=== PATIENT | male | born 1980 | race Caucasian/White ===

== ENCOUNTER → 2023-06-14 | Outpatient (CLI) | payer OTHER ==
[2023-06-14 16:59] LABS: Basophils # (A) 0.05 X 10*3/uL (0.00-0.10); Basophils % (A) 0.7 %; Eosinophils # (A) 0.16 X 10*3/uL (0.04-0.35); Eosinophils % (A) 2.2 %; HCT 42.5 % (39.6-50.0); HGB 14.3 d/dL (13.0-17.0); Lymphocytes # (A) 2.43 X 10*3/uL (0.90-5.00); Lymphocytes % (A) 33.6 %; MCH 32.1 pg (27.0-32.0); MCHC 33.6 d/dL (32.0-37.0); MCV 95.3 FL (80.0-97.0); Mean Platelet Volume 11.4 FL (9.5-12.2); Monocytes # (A) 0.75 X 10*3/uL (0.20-1.00); Monocytes % (A) 10.4 %; NRBC Per 100 WBC 0 X 10*3/uL (0.00-0.01); Neutrophils # (A) 3.82 X 10*3/uL (1.80-7.70); Neutrophils % (A) 52.8 %; Platelet Count 248 X 10*3/uL (140-440); RBC 4.46 X 10*6/uL (4.40-5.60); RDW 12.8 % (11.5-14.5); WBC 7.23 X 10*3/uL (4.50-10.00)
[2023-06-14 17:12] LABS: Blood Urea Nitrogen 15.9 mg/dL (9.0-27.0); Calcium 9.3 mg/dL (8.7-10.3); Carbon Dioxide 26.1 mmol/L (21.6-31.8); Chloride 102 mmol/L (96-109); Glucose 98 mg/dL (70-110); Potassium 4.9 mmol/L (3.5-5.5); Sodium 138 mmol/L (135-145)
== END | disposition home or self-care (01) ==
LOC: LABPAT 09:14
PROVIDERS: ATTEND Urology
DX: Z01.812 Encounter for preprocedural laboratory examination (principal); A63.0 Anogenital (venereal) warts
CPT/HCPCS: 80048; 85025

== ENCOUNTER 2023-06-21 06:27 | Day surgery (SDC) | payer OTHER ==
--- NOTE | 2023-06-16 21:23 | P.GSHP ---
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 He was treated with topical therapy years ago, and takes acyclovir for oral cold sores. He is , and his is checked regularly for HPV. Thus far, she has not developed condyloma. - Cardiovascular Cardiovascular: Reports high blood pressure Past Medical History Past Medical History: Hypertension Past Surgical History: Hernia Repair Medications and Allergies Home Medications Medication Instructions Recorded Confirmed Type lisinopriL [Zestril] 5 mg PO DAILY 06/16/23 06/16/23 History valACYclovir HCL [Valacyclovir] 500 mg PO DAILY 06/16/23 06/16/23 History Allergies Allergy/AdvReac Type Severity Reaction Status Date / Time No Known Allergies Allergy Verified 06/16/23 21:17 Surgical - Exam - General well developed, well nourished, no distress - Respiratory normal respiratory effort - Genitourinary Circumcised phallus. Condyloma are present on the ventral penile base, left lateral penile base, and pre-pubic region. Scrotum and testes are normal. - Psychiatric oriented to time, oriented to person, oriented to place, speech is normal, memory intact Assessment and Plan (1) Anogenital (venereal) warts Status: Acute Code(s): A63.0 - ANOGENITAL (VENEREAL) WARTS SNOMED Code(s): 192152974 Plan: CO2 laser vaporization of penile condyloma. The procedures been reviewed in de tail with the patient. He has been made aware of potential risks, which include anesthesia, bleeding, infection, penile scarring, and recurrent condyloma.
[2023-06-21] MEDS ORDERED: ONDANSETRON 4 MG/2 ML VIAL ONE (06:59)
[2023-06-21] MEDS ORDERED: LIDOCAINE 1% (10MG/ML) FOR IV START INTRADERMA ONE (07:05)
[2023-06-21] MEDS ORDERED: LACTATED RINGERS 1,000 ML IV ONE (07:05)
[2023-06-21] MEDS ORDERED: DEXAMETHASONE SOD PHOSPHATE 4 MG/ML 1 ML VIAL IVP ONE (07:10)
[2023-06-21] MEDS ORDERED: SCOPOLAMINE 1 MG/72 HR PATCH TRANSDERM ONE (07:10)
[2023-06-21] MEDS ORDERED: fentaNYL (PF) 50 MCG/ML 2 ML AMP ONE (07:29)
[2023-06-21] MEDS ORDERED: LIDOCAINE 2% INJ 20 MG/ML (2 ML VIAL) ONE (07:29)
[2023-06-21] MEDS ORDERED: MIDAZOLAM 2 MG/2 ML VIAL ONE (07:29)
[2023-06-21] MEDS ORDERED: PROPOFOL 10 MG/ML 20 ML VIAL IV ONE (07:29)
[2023-06-21] MEDS ORDERED: BUPIVACAINE (PF) 0.25% 30 ML VIAL SQ ONE ×2 (07:33)
[2023-06-21] MEDS ORDERED: ACETIC ACID 15 DROPS/ML DROPS MISCELLANE ONE (08:05)
[2023-06-21 08:34] VITALS: TEMP 97.1
--- NOTE | 2023-06-21 08:35 | P.OP ---
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 He was treated with topical therapy years ago, and takes acyclovir for oral cold sores. He is , and his is checked regularly for HPV. Thus far, she has not developed condyloma. Operative Findings: Multiple penile shaft and pre-pubic condyloma. Description of Procedure: The patient was taken to the operating room and placed in the supine position. The external genitalia was prepped and draped sterilely. The largest condyloma measured approximately 1.5 cm and was located in the pre-pubic region, just above the phallus. This was superficially and partially excised using tenotomy scissors. A small bleeder was controlled with electrocautery. The CO2 laser was then used to treat the lesion in its entirety. There were approximately 3 other pre-pubic condyloma measuring 5 mm or smaller in size, which were treated with CO2 laser ablation. Attention was then paid to the penile shaft, where multiple condyloma were seen. The largest were located on the left ventral penile base, measuring up to 1 cm in size. All were treated with CO2 laser ablation. As most were superficial, scraping away the eschar and treating the base was necessary in only 2 of the lesions. Once all visible lesions had been treated, acetic acid soaked gauze was used to wrap the penis and scrotum. After waiting several minutes, the penis was reexamined and an additional lesion was seen on the ventral aspect of the penile shaft. After treating this, the procedure was terminated. Silvadene cream was applied to each of the treatment sites. A 2 inch Murtaza was wrapped around the phallus. The patient tolerated the procedure well was taken to the recovery room in stable condition.
[2023-06-21 09:19] VITALS: BP 127/65; PULSE 68; RESP 18
== END 2023-06-21 09:35 | disposition home or self-care (01) ==
LOC: OR 06:27
PROVIDERS: ATTEND Urology
DX: A63.0 Anogenital (venereal) warts (principal); I10 Essential (primary) hypertension; Z98.890 Other specified postprocedural states
CPT/HCPCS: 54057; 88305; J2250; J1100; J0690; J2405; J3010; J2704; J2001; J0665

== ENCOUNTER 2025-02-08 11:16 | Emergency (ER) | payer OTHER ==
[2025-02-08 11:25] VITALS: RESP 20; TEMP 98.5
--- NOTE | 2025-02-08 11:47 | XR ---
EXAMINATION TYPE: XR chest 2V DATE OF EXAM: 02/08/2025 11:37 AM COMPARISON: None. CLINICAL INDICATION: Male, 45 years old with history of cough and SOB, TECHNIQUE: XR chest 2V view(s) obtained. FINDINGS: The heart size is normal. The pulmonary vasculature is normal. The lungs are clear. IMPRESSION: 1. No acute pulmonary process. [facility], , 02/08/2025 11:44 AM
[2025-02-08 12:15] LABS: Influenza A Detected (Not Detectd); Influenza B Not Detected (Not Detectd); RSV Not Detected (Not Detectd)
[2025-02-08] MEDS: IPRATROPIUM-ALBUTEROL 3 ML NEB INHALATION STA (12:31)
--- NOTE | 2025-02-08 12:48 | ED ---
URI HPI - General Chief Complaint: Upper Respiratory Infection Stated Complaint: TWILA Time Seen by Provider: 02/08/25 11:26 Source: patient, RN notes reviewed Mode of arrival: ambulatory Limitations: no limitations - History of Present Illness Initial Comments: 45-year-old male presents emergency department complaining cough and congestion. Patient states he has been sick for 1 WEEK. PATIENT STATES HE ASSUMED HE HAD INFLUENZA HIS DAUGHTER WAS FLU A POSITIVE. PATIENT DID A TELEHEALTH AND WAS GIVEN TAMIFLU AV NODE BEEN 4 DAYS. PATIENT STATES HE STILL HAVING SOME LUNG TIGHTNESS, HISTORY OF ASTHMA. - Related Data Home Medications Medication Instructions Recorded Confirmed lisinopriL [Zestril] 5 mg PO 1200 06/16/23 06/18/23 Multivitamins, Thera [Multivitamin 1 tab PO DAILY 06/18/23 06/18/23 (formulary)] Previous Rx's Medication Instructions Recorded Ketorolac [Toradol] 10 mg PO Q6HR PRN #10 tab 06/21/23 SILVER sulfADIAZINE CREAM 1 applic TOPICAL BID #85 gram 06/21/23 [Silvadene Cream] Albuterol Inhaler [Ventolin Hfa 1 - 2 puff INHALATION Q4-6H PRN #1 02/08/25 Inhaler] each Albuterol Nebulized [Ventolin 2.5 mg INHALATION Q4H PRN #75 ml 02/08/25 Nebulized] Allergies Allergy/AdvReac Type Severity Reaction Status Date / Time No Known Allergies Allergy Verified 02/08/25 11:25 Review of Systems ROS Statement: Those systems with pertinent positive or pertinent negative responses have been documented in the HPI. ROS Other: All systems not noted in ROS Statement are negative. Past Medical History Past Medical History: No Reported History History of Any Multi-Drug Resistant Organisms: None Reported Past Surgical History: No Surgical Hx Reported Past Psychological History: No Psychological Hx Reported Smoking Status: Never smoker Past Alcohol Use History: None Reported Past Drug Use History: None Reported General Exam Limitations: no limitations General appearance: alert, in no apparent distress Head exam: Present: atraumatic, normocephalic, normal inspection Eye exam: Present: normal appearance, PERRL, EOMI. Absent: scleral icterus, conjunctival injection, periorbital swelling ENT exam: Present: normal exam, normal oropharynx, mucous membranes moist Neck exam: Present: normal inspection, full ROM. Absent: tenderness, meningismus, lymphadenopathy Respiratory exam: Present: wheezes. Absent: normal lung sounds bilaterally, respiratory distress, rales, rhonchi, stridor Cardiovascular Exam: Present: regular rate, normal rhythm, normal heart sounds. Absent: systolic murmur, diastolic murmur, rubs, gallop, clicks Course Vital Signs 02/08/25 02/08/25 11:21 12:31 Temperature 98.5 F Pulse Rate 73 84 Respiratory 20 Rate Blood Pressure 113/75 O2 Sat by Pulse 95 Oximetry Medical Decision Making - Medical Decision Making Was pt. sent in by a medical professional or institution ([facility], [employer], urgent care, hospital, or skilled nursing...) When possible be specific @ -No Did you speak to anyone other than the patient for history (EMS, parent, family, police, friend...)? What history was obtained from this source @ -No Did you review nursing and triage notes (agree or disagree)? Why? @ -I reviewed and agree with nursing and triage notes Were old charts reviewed (outside hosp., previous admission, EMS record, old EKG, old radiological studies, urgent care reports/EKG's, skilled nursing records)? Report findings @ -No old charts were reviewed Differential Diagnosis (chest pain, altered mental status, abdominal pain women, abdominal pain men, vaginal bleeding, weakness, fever, dyspnea, syncope, headache, dizziness, GI bleed, back pain, seizure, CVA, palpatations, mental health, musculoskeletal)? @ -COVID 19, RSV, influenza, pneumonia, acute bronchitis, URI, this list is not all inclusive EKG interpreted by me (3pts min.). @ -None X-rays interpreted by me (1pt min.). @ -Chest x-ray shows no acute cardiopulmonary process. CT interpreted by me (1pt min.). @ -None done U/S interpreted by me (1pt. min.). @ -None done What testing was considered but not performed or refused? (CT, X-rays, U/S, labs)? Why? @ -None What meds were considered but not given or refused? Why? @ -None Did you discuss the management of the patient with other professionals (professionals i.e. [facility], [employer], lab, RT, psych nurse, clinical social work therapist, dba developer, teacher, peace officer, correctional counselor/case manager)? Give summary @ -No Was smoking cessation discussed for >3mins.? @ -No Was critical care preformed (if so, how long)? @ -No Were there social determinants of health that impacted care today? How? (Homelessness, low income, unemployed, alcoholism, drug addiction, transportation, low edu. Level, literacy, decrease access to med. care, [facility], rehab)? @ -No Was there de-escalation of care discussed even if they declined (Discuss DNR or withdrawal of care, Hospice)? DNR status @ -No What co-morbidities impacted this encounter? (DM, HTN, Smoking, COPD, CAD, Cancer, CVA, ARF, Chemo, Hep., AIDS, mental health diagnosis, sleep apnea, morbid obesity)? @ -None Was patient admitted / discharged? Hospital course, mention meds given and route, prescriptions, significant lab abnormalities, going to OR and other pertinent info. @ -Discharge patient is influenza A positive. Patient does have notable wheezing felt better after DuoNeb treatment. Patient discharged with albuterol inhaler return parameters ansley. Undiagnosed new problem with uncertain prognosis? @ -No Drug Therapy requiring intensive monitoring for toxicity (Heparin, Nitro, Insulin, Cardizem)? @ -No Were any procedures done? @ -No Diagnosis/symptom? @ -Influenza A Acute, or Chronic, or Acute on Chronic? @ -Acute Uncomplicated (without systemic symptoms) or Complicated (systemic symptoms)? @ -Uncomplicated Side effects of treatment? @ -No Exacerbation, Progression, or Severe Exacerbation? @ -No Poses a threat to life or bodily function? How? (Chest pain, [place], [place], pneumonia, PE, COPD, DKA, ARF, appy, cholecystitis, CVA, Diverticulitis, Homicidal, Suicidal, threat to staff... and all critical care pts) @ -No - Lab Data Lab Results 02/08/25 Range/Units 11:29 Influenza Type A (PCR) Detected A (Not Detectd) Influenza Type B (PCR) Not Detected (Not Detectd) RSV (PCR) Not Detected (Not Detectd) SARS-CoV-2 (PCR) Not Detected (Not Detectd) Disposition Clinical Impression: Influenza A Disposition: HOME SELF-CARE Condition: Stable Instructions (If sedation given, give patient instructions): Influenza (ED) Additional Instructions: Please return to the Emergency Department if symptoms worsen or any other concerns. Prescriptions: Albuterol Inhaler [Ventolin Hfa Inhaler] 1 - 2 puff INHALATION Q4-6H PRN #1 each PRN Reason: Shortness Of Breath Albuterol Nebulized [Ventolin Nebulized] 2.5 mg INHALATION Q4H PRN #75 ml PRN Reason: difficulty in breathing Is patient prescribed a controlled substance at d/c from ED?: No Referrals: Alex Mcdonough Jr, [Primary Care Provider] - 1-2 days Time of Disposition: 12:48
[2025-02-08 12:58] VITALS: BP 130/68; PULSE 85
== END 2025-02-08 12:58 | disposition home or self-care (01) ==
LOC: EC 11:16
DX: J10.1 Influenza due to other identified influenza virus with other respiratory manifestations (principal)
CPT/HCPCS: 71046; 87636; 94640; 99285